=== PATIENT | female | born 1995 | race Caucasian/White ===

== ENCOUNTER 2020-03-10 19:11 | Emergency (ER) | payer OTHER ==
[~2020-03-10] VITALS: Ht 172 cm; Wt 58.0 kg
[2020-03-10] MEDS ORDERED: DOXY100T2 PO (19:28)
[2020-03-10] MEDS ORDERED: DICL75TA2 PO (19:28)
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
[2020-03-10] MEDS ORDERED: TETANUS & DIPHTHERIA TOX,ADULT 0.5 ML (TENIVAC) IM ONE (19:30)
[2020-03-10 19:42] VITALS: BP 124/79
== END 2020-03-10 19:41 | disposition home or self-care (01) ==
LOC: ER FS 19:12
DX: S80.11XA Contusion of right lower leg, initial encounter (principal); S81.831A Puncture wound without foreign body, right lower leg, initial encounter; W54.0XXA Bitten by dog, initial encounter; Y08.89XA Assault by other specified means, initial encounter
CPT/HCPCS: 90714